=== PATIENT | female | born 1960 | race Two or more races ===

== ENCOUNTER 2024-02-12 05:47 | Day surgery (SDC) | payer OTHER ==
[2024-02-08 11:02] LABS: URINE APPEARANCE Cloudy; URINE BILIRRUBIN Negative (NEGATIVE); URINE BLOOD Trace; URINE COLOR Yellow; URINE KETONE Negative (NEGATIVE); URINE LEUKOCYTE Small; URINE NITRATE Negative; URINE PROTEIN Negative (NEGATIVE); URINE UROBILINOGEN 0.2 E.U./dl
[2024-02-08 11:04] LABS: URINE BACTERIA 962.5 uL (0.0-1933); URINE EPITHELIAL CELLS 46.3 uL (0.0-38.8); URINE RBC 208.4 uL (0.0-20.8); URINE WBC 148.2 uL (0.0-23.2)
[2024-02-08 11:08] LABS: HEMATOCRIT 43.1 % (36.0-45.00); HEMOGLOBIN 14.4 g/dL (12.0-15.00); MEAN CELL VOLUME 88.4 fL (80.00-100.00); MEAN CORPUSCULAR HEMOGLOBIN 29.5 pg (27.00-32.0); MEAN CORPUSCULAR HGB CONC 33.4 g/dl (32.0-36.0); PLATELET COUNT 372 K/uL (150-450); RED BLOOD COUNT 4.87 M/uL (4.00-6.00); RED CELL DISTRIBUTION WIDTH 14.3 % (11.5-14.5)
[2024-02-08 11:14] LABS: URINE CAST 1.06 uL (0.0-1.40); URINE GLUCOSE 500 MG/DL (NEGATIVE)
[2024-02-08 11:17] LABS: URINE MUCUS MODERATE
[2024-02-08 12:14] LABS: INR 0.94; PARTIAL THROMBOPLASTIN TIME 32.4 SECONDS (22.0-34.0); PROTHROMBIN TIME 10.3 SECONDS (9.0-11.5)
[2024-02-08 12:19] LABS: ALBUMIN 3.8 gm/dL (3.4-5.0); BILIRUBIN TOTAL 0.46 mg/dL (0.3-1.2); CALCIUM 9.9 mg/dL (8.5-10.1); CREATININE SERUM 0.6 mg/dL (0.55-1.02); GFR 101.63; GLOBULINA 4.1 G/DL (2.4-3.5); POTASSIUM 4.17 mEq/L (3.5-5.1); TOTAL PROTEIN 7.9 gm/dL (6.4-8.2)
[~2024-02-12 05:47] MED LIST: HUMALOG100 UNIT/2 SUBCUTANEO; LANTUS SOL100 UNIT/1 SUBCUTANEO; NEURONTIN800 MG PO; SYNJARDY 12.5-1 EACH PO; SYNTHROID125 MCG PO; TRULICITY0.75 MG/0.
[2024-02-12] MEDS ORDERED: CEFAZOLIN SODIUM 1,000 MG VIAL IV ONE (13:00)
[2024-02-12] MEDS ORDERED: MORPHINE SULFATE 4 MG/ML VIAL IV ONE ×2 (14:40→15:10)
[2024-02-12] MEDS ORDERED: ENALAPRILAT DIHYDRATE 1.25 MG/ML VIAL IV ONE ×2 (15:10→15:40)
== END 2024-02-12 16:55 | disposition home or self-care (01) ==
LOC: CIR.AMB 05:47
PROVIDERS: ATTEND Orthopaedic Surgery Hand Surgery
DX: S62.015K Nondisplaced fracture of distal pole of navicular [scaphoid] bone of left wrist, subsequent encounter for fracture with nonunion (principal); Z88.8 Allergy status to other drugs, medicaments and biological substances; J45.909 Unspecified asthma, uncomplicated; E11.69 Type 2 diabetes mellitus with other specified complication; E03.9 Hypothyroidism, unspecified